=== PATIENT | male | born 1990 | race Caucasian/White ===

== ENCOUNTER 2018-12-25 04:39 | Emergency (ER) | payer MEDICAID ==
[2018-12-25] MEDS ORDERED: NS 1,000 ML IV ONE ×2 (04:42→05:00)
--- NOTE | 2018-12-25 04:44 | EDPHY ---
H & P Time Seen by Provider: 12/25/18 04:43 HPI/ROS: HPI CHIEF COMPLAINT: Left flank pain HISTORY OF PRESENT ILLNESS: Patient is a 28-year-old male, arrives emergency room with left flank pain. He states he has had left flank pain ongoing for 2 days with associated nausea but no vomiting. Complains of left flank pain radiating into his left lower quadrant. He denies any testicular pain, denies any fever. He does complain of urinary urgency. He states he feels very similar to his previous kidney stones. Denies chest pain or shortness of breath or pleuritic pain. Past Medical History: Previous history of kidney stones. Past Surgical History: Lithotripsy Social History: He smokes marijuana, denies alcohol or illicit drugs. Homeless. Family History: Noncontributory ROS REVIEW OF SYSTEMS: 10 Systems were reviewed and negative with the exception of the elements mentioned in the history of present illness. Exam Constitutional triage nursing summary reviewed, vital signs reviewed, awake/ alert. Eyes normal conjunctivae and sclera, EOMI, PERRLA. HENT normal inspection, atraumatic, moist mucus membranes, no epistaxis, neck supple/ no meningismus, no raccoon eyes. Respiratory clear to auscultation bilaterally, normal breath sounds, no respiratory distress, no wheezing. Cardiovascular rate normal, regular rhythm, no murmur, no edema, distal pulses normal. Gastrointestinal no significant tenderness on abdominal exam, soft, non-tender , no rebound, no guarding, normal bowel sounds, no distension, no pulsatile mass. Genitourinary mild tender palpation left flank Musculoskeletal no midline vertebral tenderness, full range of motion, no calf swelling, no tenderness of extremities, no meningismus, good pulses, neurovascularly intact. Skin pink, warm, & dry, no rash, skin atraumatic. Neurologic awake, alert and oriented x 3, AAOx3, moves all 4 extremities equally, motor intact, sensory intact, CN II-XII intact, normal cerebellar, normal vision, normal speech. Psychiatric normal mood/affect. Heme/Lymph/Immune no lymphadenopathy. Differential Diagnosis: Differential diagnosis includes but is not limited to and in no particular order: Bowel obstruction, appendicitis, gallbladder disease, diverticulitis, colitis, enteritis, perforated viscus, gastritis, GERD , esophagitis, urinary tract infection, pyelonephritis, kidney stones Medical Decision Making: Plan for this patient IV establishment, basic labs, urinalysis, gentle IV fluids, CT scan abdomen pelvis without for left flank pain. Rule out kidney stone, hydronephrosis hydro ureter Re-evaluation: CT scan abdomen pelvis without contrast shows nonobstructing left renal stones no ureteral stones or hydronephrosis there is colonic diverticulosis without diverticulitis this was faxed to me by [facility] at 5:15 a.m.. Patient's drug screen positive for methamphetamine. Patient CT scan shows no evidence of obstructing kidney stone. Patient's urinalysis concerning for blood. I do recommend he follows up with Urology on outpatient basis for hematuria. Is also possible he passed a small stone that we did not catch today given the blood in his urine and flank pain. Re-examination at this time 6:00 a.m. He is resting comfortably he denies any abdominal pain flank pain vomiting or fever at this time. Referral given to Urology. Return precautions discussed with the patient understands return emergency room if develops worsening abdominal pain, fever, vomiting, not doing well Source: Patient, EMS Constitutional: Initial Vital Signs Temperature (C) 36.8 C 12/25/18 04:44 Heart Rate 116 H 12/25/18 04:44 Respiratory Rate 18 12/25/18 04:44 Blood Pressure 132/109 H 12/25/18 04:44 O2 Sat (%) 99 12/25/18 04:44 O2 Delivery Mode Room Air Allergies/Adverse Reactions: amoxicillin Allergy (Verified 12/25/18 04:46) Penicillins Allergy (Verified 12/25/18 04:46) Home Medications: Medication Instructions Recorded NK [No Known Home Meds] 12/25/18 Medical Decision Making - Data Points Laboratory Results: Laboratory Results 12/25/18 04:57 12/25/18 04:57 12/25/18 12/25/18 12/25/18 05:08 04:57 04:57 WBC 10.74 10^3/uL H 10^3/uL (3.80-9.50) RBC 5.02 10^6/uL 10^6/uL (4.40-6.38) Hgb 16.5 g/dL g/dL (13.7-17.5) Hct 48.3 % % (40.0-51.0) MCV 96.2 fL fL (81.5-99.8) MCH 32.9 pg pg (27.9-34.1) MCHC 34.2 g/dL g/dL (32.4-36.7) RDW 13.2 % % (11.5-15.2) Plt Count 372 10^3/uL 10^3/uL (150-400) MPV 8.5 fL L fL (8.7-11.7) Neut % (Auto) 71.3 % % (39.3-74.2) Lymph % (Auto) 18.2 % % (15.0-45.0) [place] % (Auto) 8.9 % % (4.5-13.0) Eos % (Auto) 0.8 % % (0.6-7.6) Baso % (Auto) 0.6 % % (0.3-1.7) Nucleat RBC Rel Count 0.0 % % (0.0-0.2) Absolute Neuts (auto) 7.65 10^3/uL H 10^3/uL (1.70-6.50) Absolute Lymphs (auto) 1.96 10^3/uL 10^3/uL (1.00-3.00) Absolute Monos (auto) 0.96 10^3/uL H 10^3/uL (0.30-0.80) Absolute Eos (auto) 0.09 10^3/uL 10^3/uL (0.03-0.40) Absolute Basos (auto) 0.06 10^3/uL 10^3/uL (0.02-0.10) Absolute Nucleated RBC 0.00 10^3/uL 10^3/uL (0-0.01) Immature Gran % 0.2 % % (0.0-1.1) Immature Gran # 0.02 10^3/uL 10^3/uL (0.00-0.10) Sodium 136 mEq/L mEq/L (135-145) Potassium 4.7 mEq/L mEq/L (3.5-5.2) Chloride 102 mEq/L mEq/L (97-110) Carbon Dioxide 20 mEq/l L mEq/l (22-31) Anion Gap 14 mEq/L mEq/L (6-14) BUN 18 mg/dL mg/dL (7-23) Creatinine 0.8 mg/dL mg/dL (0.7-1.3) Estimated GFR > 60 Glucose 86 mg/dL mg/dL (70-100) Calcium 10.2 mg/dL mg/dL (8.5-10.4) Total Bilirubin 2.0 mg/dL H mg/dL (0.1-1.4) Conjugated Bilirubin 0.3 mg/dL mg/dL (0.0-0.5) Unconjugated Bilirubin 1.7 mg/dL H mg/dL (0.0-1.1) AST 40 IU/L IU/L (17-59) ALT 46 IU/L IU/L (21-72) Alkaline Phosphatase 80 IU/L IU/L (38-126) Total Protein 8.6 g/dL H g/dL (6.3-8.2) Albumin 5.0 g/dL g/dL (3.5-5.0) Lipase 79 IU/L IU/L (23-300) Urine Color JASWINDER Urine Appearance HAZY Urine pH 6.0 (5.0-7.5) Ur Specific [place] 1.027 (1.002-1.030) Urine Protein NEGATIVE (NEGATIVE) Urine Ketones 1+ H (NEGATIVE) Urine Blood 2+ H (NEGATIVE) Urine Nitrate NEGATIVE (NEGATIVE) Urine Bilirubin NEGATIVE (NEGATIVE) Urine Urobilinogen 4.0 EU H EU (0.2-1.0) Ur Leukocyte Esterase NEGATIVE (NEGATIVE) Urine RBC 50-182 /hpf H /hpf (0-3) Urine WBC 1-3 /hpf /hpf (0-3) Ur Epithelial Cells TRACE /lpf /lpf (NONE-1+) Urine Mucus 1+ /lpf /lpf (NONE-1+) Urine Glucose NEGATIVE (NEGATIVE) Urine Opiates Screen NEGATIVE (NEGATIVE) Urine Barbiturates NEGATIVE (NEGATIVE) Ur Phencyclidine Scrn NEGATIVE (NEGATIVE) Ur Amphetamine Screen NON-NEGATIVE H (NEGATIVE) U Benzodiazepines Scrn NEGATIVE (NEGATIVE) Urine Cocaine Screen NEGATIVE (NEGATIVE) U Marijuana (THC) Screen NEGATIVE (NEGATIVE) Medications Given: Discontinued Medications Sodium Chloride (Ns) 1,000 mls @ 0 mls/hr IV EDNOW ONE; Wide Open PRN Reason: Protocol Stop: 12/25/18 04:43 Last Admin: 12/25/18 05:10 Dose: 1,000 mls Sodium Chloride (Ns) 1,000 mls @ 0 mls/hr IV ONCE ONE PRN Reason: Wide Open Stop: 12/25/18 05:01 Last Admin: 12/25/18 05:14 Dose: 1,000 mls Departure - Departure Disposition: Home, Routine, Self-Care Clinical Impression: Flank pain, Hematuria Condition: Good Instructions: Hematuria (ED), Flank Pain (ED) Additional Instructions: 1. Drink lots of water stay well-hydrated. 2. Please follow up with Urology 3. Return to the emergency room if develops worsening flank pain, abdominal pain , fever, vomiting, not doing well Referrals: Patient,NotPresent [Unknown] - As per Instructions Jonathon Yanes MD [Medical Doctor] - As per Instructions
[2018-12-25 05:07] LABS: PLATELET COUNT 372 10^3/uL (150-400)
[2018-12-25 06:31] VITALS: BP 140/121
== END 2018-12-25 06:59 | disposition home or self-care (01) ==
DX: R10.32 Left lower quadrant pain (principal); R31.9 Hematuria, unspecified; K57.30 Diverticulosis of large intestine without perforation or abscess without bleeding; E86.9 Volume depletion, unspecified; Z88.0 Allergy status to penicillin
CPT/HCPCS: 80305